=== PATIENT | female | born 1995 ===

== ENCOUNTER 2016-09-22 13:44 | Emergency (ER) | payer SELFPAY ==
--- NOTE | 2016-09-22 15:51 | OBHP ---
Datetime: 09/22/2016 15:43 IP Adm Impression: Term, intrauterine ; No Active Labor; Intact Membranes IP Admit Plan: Observation/Evaluation; Discharge home Admit Comment, IP Provider: The patient is a 21-year-old 1 para 0 estimated due date 017 estimated gestational age 38 weeks. The patient presents to labor and delivery complaining of pel claritza pressure and uterine contractions of mild to moderate intensity. Patient denies any vaginal bleed ing or leakage of fluid she reports good movement. Patient states her care has been un remarkable. Past medical history none Past surgical history none No known drug allergies Social history denies alcohol tobacco use Review of systems patient denies headache chest pain shortness of breath palpitations vaginal blee ding constipation dysuria heat or cold intolerance easy bruisability musculoskeletal neurological com plaints Vital signs stable afebrile Physical exam see notes Intrauterine at 38 weeks latent labor records reviewed from [facility] Sonogram vertex presentation Adequate pelvis Estimated weight 7 pounds Patient will be discharged home with the following instructions Patient was given labor precautions and instructed to moderate kick counts Pelvic Type - PN: Adequate Extremities - PN: Normal Abdomen - PN: Normal Back - PN: Normal Breast - PN: Not Done Lungs - PN: Normal Heart - PN: Normal Thyroid - PN: Normal Neurologic - PN: Normal HEENT - PN: Normal General - PN: Normal Weight - Estimated: 6 Presentation-Admit: Vertex FHR - Baseline A Provider: 145 Gestation - Est Wks by US: 38.0 EGA AdmitDate IP: 38.0 Vital Signs Provider: Reviewed IP Chief Complaint: Uterine contractions; Maternal discomfort NICHD Variability Prov Fetus A: Moderate 6-25bpm NICHD Accel Fetus A IP Provider: 15X15 FHR Category Provider Fetus A: Category I NICHD Decel Fetus A IP Provider: None Dilatation, Provider: 0 Effacement, Provider: 0 Station, Provider: -2 Genitourinary Exam: Normal DTRs - PN: Normal
--- NOTE | 2016-09-25 09:24 | OBPN ---
Datetime: 09/25/2016 09:19 IP Progress Plan: Augmentation Contraction Comments Provider: q2min FHR - Baseline A Provider: 130 Presentation-Admit: Vertex IP Progress Note Comment: s: no c/o; comfortable with epidural o: pit @ 3mU i: 38.3wks Labor augmentation Expectant VD p: continue pitocin Vital Signs Provider: Reviewed NICHD Accel Fetus A IP Provider: 15X15 FHR Category Provider Fetus A: Category I NICHD Variability Prov Fetus A: Minimal - Undetectable to <5bpm Dilatation, Provider: 7-8 Effacement, Provider: 85 Station, Provider: -1/0 NICHD Decel Fetus A IP Provider: None Datetime: 09/24/2016 16:45 Gestation - Est Wks by US: 38+2 Datetime: 09/22/2016 15:43 Weight - Estimated: 6
== END 2016-09-22 15:51 | disposition home or self-care (01) ==
LOC: H.EROB2 13:44
DX: O47.1 False labor at or after 37 completed weeks of gestation (principal); Z3A.38 38 weeks gestation of pregnancy

== ENCOUNTER 2016-09-24 16:11 | Inpatient (IN) | payer MEDICAID, SELFPAY ==
[2016-09-24 18:32] VITALS: BMI 24.0
[2016-09-24] MEDS ORDERED: Lactated Ringer's 1,000 ML IV SCH (20:30)
[2016-09-24 21:29] LABS: BASO % 0.3 % (0.0-2.0); EOS % 0.1 % (0.0-4.0); HEMATOCRIT 33.8 % (34.0-47.0); LYMPH # 1.6 K/uL (1.0-4.3); LYMPH % 15.4 % (20.0-40.0); MEAN CELL VOLUME 88.2 fl (81.0-99.0); MEAN CORPUSCULAR HEMOGLOBIN 30.2 pg (27.0-31.0); MEAN CORPUSCULAR HGB CONC 34.3 g/dL (33.0-37.0); MEAN PLATELET VOLUME 8.6 fl (7.2-11.7); MONO # 0.6 K/uL (0.0-0.8); NEUT # 8.1 K/uL (1.8-7.0); NEUT % 78.2 % (50.0-75.0); RED CELL DISTRIBUTION WIDTH 13.1 % (11.5-14.5); WHITE BLOOD COUNT 10.3 K/uL (4.8-10.8)
--- NOTE | 2016-09-24 21:56 | OBADHP ---
Datetime: 09/24/2016 16:45 Admit Comment, IP Provider: 21 year old presents with complaints of contractions since 07:00. D enies vaginal bleeding, leakage of fluid, reports good movement. Notes mild headache, denies nausea/vomiting, abdominal pain. Last sexual intercourse approx. 1 month ago. records reviewed: HIV neg, RPR nonreactive, Gc/Ct: neg/neg, HEpB neg, Zika neg O: as above, VSS A/P: 21 y/o in early labor. -continuous FHT -will observe -will recheck for cervical changes -If no cervical changes noted, likely discharge home Case discussed with Dr. Clark, who agrees with my assessment and plan. Ayaan Hollingsworth PGY1 the patient was seen with the resident and I agree with the note. Will admit external monito r routine labs adequate pelvis vertex presentation estimated weight 7 pounds Pelvic Type - PN: Adequate Extremities - PN: Normal Abdomen - PN: Normal Lungs - PN: Normal Heart - PN: Normal General - PN: Normal FHR - Baseline A Provider: 140s Gestation - Est Wks by US: 38+2 IP Hx Assessment: The History has been Reviewed and is Current Vital Signs Provider: Reviewed IP Chief Complaint: Uterine contractions NICHD Variability Prov Fetus A: Moderate 6-25bpm NICHD Accel Fetus A IP Provider: 15X15 NICHD Decel Fetus A IP Provider: None Dilatation, Provider: 2 Effacement, Provider: thick Station, Provider: high Genitourinary Exam: Normal EGA AdmitDate IP: 38.2 IP Adm Impression: Term, intrauterine IP Admit Plan: Observation/Evaluation Datetime: 09/22/2016 15:43 Back - PN: Normal Breast - PN: Not Done Thyroid - PN: Normal Neurologic - PN: Normal HEENT - PN: Normal Weight - Estimated: 6 Presentation-Admit: Vertex FHR Category Provider Fetus A: Category I DTRs - PN: Normal
[2016-09-24] MEDS: Lactated Ringer's 1,000 ML IV SCH (23:35)
[2016-09-25] MEDS ORDERED: Fentanyl/Bupivacaine HCl 250 ML EPI ONE (00:05)
[2016-09-25] MEDS ORDERED: Bupivacaine HCl 0.25% PF (10 ml) Inj ONE (00:06)
[2016-09-25] MEDS: Lactated Ringer's 1,000 ML IV SCH ×3 (00:35→15:56)
[2016-09-25] MEDS ORDERED: Oxytocin 30 units/LR 500ML 500 ML IV ONE (04:13)
[2016-09-25] MEDS ORDERED: Lidocaine 1% Inj (20ml) ONE ×2 (07:45→13:08)
[2016-09-25] MEDS: Lactated Ringer's 500 ML IV SCH ×2 (12:20→15:28)
[2016-09-25] MEDS ORDERED: Oxycodone/Acetaminophen 5/325 mg Tab PO PRN ×4 (14:51→15:59)
[2016-09-25] MEDS ORDERED: Benzocaine/Menthol SPRAY TOP PRN (14:51)
[2016-09-25] MEDS ORDERED: Lactated Ringer's 1,000 ML IV SCH (15:59)
[2016-09-25 18:15] LABS: BASO % 0.2 % (0.0-2.0); HEMATOCRIT 32.1 % (34.0-47.0); LYMPH # 1.3 K/uL (1.0-4.3); LYMPH % 8.1 % (20.0-40.0); MEAN CELL VOLUME 90.1 fl (81.0-99.0); MEAN CORPUSCULAR HEMOGLOBIN 29.1 pg (27.0-31.0); MEAN CORPUSCULAR HGB CONC 32.3 g/dL (33.0-37.0); MEAN PLATELET VOLUME 8.8 fl (7.2-11.7); MONO # 1.4 K/uL (0.0-0.8); MONO % 8.3 % (0.0-10.0); NEUT # 13.8 K/uL (1.8-7.0); NEUT % 83.4 % (50.0-75.0); PLATELET COUNT 206 K/uL (130-400); RED CELL DISTRIBUTION WIDTH 13.1 % (11.5-14.5); WHITE BLOOD COUNT 16.6 K/uL (4.8-10.8)
[2016-09-25 19:41] LABS: NEUTROPHIL 84 % (42-75); TOTAL CELLS COUNTED 100
[2016-09-25] MEDS: Benzocaine/Menthol SPRAY TOP PRN (22:22)
--- NOTE | 2016-09-26 02:44 | OBDS ---
DELIVERY PERSONNEL Delivery Doctor: Nata Field MD Flight Crew Ordnanceman: Shawanda Hines RN MATERNAL INFORMATION Delivery Anesthesia: Epidural Medications in Delivery: pitocin, tylenol Estimated Blood Loss (ml): 250 Placenta Cultured: No Maternal Complications: None RN Comments: pt delivered viable female. baby was dried and placed on mother's chest for skin to ski n. apgars were 9,9. then taken to warmer for initial assessment. pt repaired for 2nd degree la c. then placed on mother's chest for bonding and latching. baby and pt remained stable. Provider Comments: delivery note intrapartum dx: labor; 38.3wk pp dx: sme proced: ; plac delivered spontaneously and intact; repair of perineal laceration ob: orossetos anesth: epid findings viable female; 2990g; 9_9 ebl 250cc no complic neon remained in br with pt LABOR SUMMARY EDC: 10/06/2016 00:00 No. Babies in Womb: 1 Attempted: No Labor Anesthesia: Epidural LABOR INFORMATION Reason for Induction: Not Applicable Onset of Labor: 09/24/2016 07:00 Complete Dilatation: 09/25/2016 13:00 Oxytocin: Augmentation Group B Beta Strep: Negative (Annotations: 09/13/16) Steroids Given: None Reason Steroids Not Administered: Not Applicable MEMBRANES Membranes Rupture Method: Artificial Rupture of Membranes: 09/25/2016 06:30 Length of Rupture (hrs): 7.45 Amniotic Fluid Color: Clear Amniotic Fluid Amount: Moderate Amniotic Fluid Odor: Normal STAGES OF LABOR Stage 1 hrs: 30 Stage 1 min: 0 Stage 2 hrs: 0 Stage 2 min: 57 Stage 3 hrs: 0 Stage 3 min: 6 Total Time in Labor hrs: 31 Total Time in Labor min: 3 VAGINAL DELIVERY Episiotomy: None Laceration Extension: Second Degree Laceration Type: Perineal Laceration Repair: Yes Laceration Repair Note: repair with 3-0 vicryl Initial Vag Sponge Count: 5 Final Vag Sponge Count: 5 Initial Vag Sharps Count: 2 Final Vag Sharps Count: 2 Sponge Count Correct: Yes Sharps Count Correct: Yes BABY A INFORMATION Infant Delivery Date/Time: 09/25/2016 13:57 Method of Delivery: Vaginal Born in Route : No : N/A Forceps: N/A Vacuum Extraction: N/A Shoulder Dystocia : No ASSISTED DELIVERY BABY A Station Vacuum/Forcep Apply: SHOULDER DYSTOCIA BABY A Delivery Date/Time: 09/25/2016 13:57 PRESENTATION/POSITION BABY A Presentation: Cephalic Cephalic Presentation: Vertex PLACENTA INFORMATION BABY A Placenta Delivery Time : 09/25/2016 14:03 Placenta Method of Delivery: Spontaneous Placenta Status: Delivered SCORES BABY A Heart Rate 1 min: >100 bpm Resp Effort 1 min: Good Cry Reflex Irritability 1 min: Cough or Sneeze or Pulls Away Muscle Tone 1 min: Active Motion Color 1 min: Body [place], Extremities Blue Resuscitation Effort 1 min: N/A SCORE 1 MIN: 9 Heart Rate 5 min: >100 bpm Resp Effort 5 min: Good Cry Reflex Irritability 5 min: Cough or Sneeze or Pulls Away Muscle Tone 5 min: Active Motion Color 5 min: Body [place], Extremities Blue Resuscitation Effort 5 min: N/A SCORE 5 MIN: 9 INFANT INFORMATION BABY A Gestational Age at Delivery: 38.3 Gestational Status: Term Outcome : Liveborn Condition : Stable Sex: Female WEIGHT/LENGTH BABY A Infant Birthweight (gms): 2990 Infant Weight (lb): 6 Weight (oz): 9 CORD INFORMATION BABY A No. Cord Vessels: 3 Nuchal Cord : N/A Cord Blood Taken: Yes Suction: Mouth
[2016-09-26 07:18] LABS: BASO % 0.3 % (0.0-2.0); EOS # 0.1 K/uL (0.0-0.7); EOS % 0.6 % (0.0-4.0); HEMATOCRIT 25.8 % (34.0-47.0); LYMPH # 2.9 K/uL (1.0-4.3); LYMPH % 20.5 % (20.0-40.0); MEAN CELL VOLUME 89.6 fl (81.0-99.0); MEAN CORPUSCULAR HEMOGLOBIN 29.5 pg (27.0-31.0); MEAN PLATELET VOLUME 8.8 fl (7.2-11.7); MONO # 0.9 K/uL (0.0-0.8); MONO % 6.4 % (0.0-10.0); NEUT # 10.3 K/uL (1.8-7.0); NEUT % 72.2 % (50.0-75.0); RED CELL DISTRIBUTION WIDTH 13.2 % (11.5-14.5); WHITE BLOOD COUNT 14.2 K/uL (4.8-10.8)
--- NOTE | 2016-09-26 22:59 | OBPPN ---
Datetime: 09/26/2016 06:32 PP Pain Prov: Within normal limits PP Nausea Prov: Denies PP Flatus Prov: Yes PP BM Prov: No PP Breasts Prov: Normal PP Heart Prov: Normal PP Lungs Prov: Normal PP Abdomen/Uterus Prov: Normal PP Lochia Prov: Normal PP Vulva/Perineum Prov: Normal PP CVA Tenderness Prov: Normal PP Extremities Prov: Normal PP C/S Incision Prov: Not Applicable PP Progress Prov: Normal PP Comments Phys Exam Prov: lungs CTA b/l, RRR, S1S2, uterus firm umb level, +BM, no calf tenderness , alert, oriented PP Impression Prov: Normal progression PP Plan Prov: Continue present management PP Progress Note Prov: PPD1 21 y/o F s/p at 38.3w and 2nd degree lac doing well on PPD1. Lochia more than menses, de nies dizziness, nausea, CP, SOB, palpitations or vomiting. Voiding with no difficulty. +Flatus, no BM . Tolerating PO reg diet. Pain controlled with pain meds. O: See above [facility] received: Hgb 10.4 A: 21 y/o S/P doing well on PPD1 P: -Cont current plan -Motrin PRn for pain -reg diet -encourage ambulation -Anticipated DC 09/26/16 [facility] PGY1 OB Hospitalist on-call...I saw and examined this patinet on rounds this moring. Agree with above note. DAIN IP PP Procedures: None Vital Signs Provider PP: Reviewed; Within Normal Limits
[2016-09-27] MEDS: Benzocaine/Menthol SPRAY TOP PRN (08:30)
--- NOTE | 2016-09-27 11:56 | OBDCSUM ---
Datetime: 09/27/2016 06:31 Discharged to, Provider: Home Follow up at, Provider: [facility] Disch Instr Activity: Normal activity Disch Instr Diet: Regular Discharge Instructions, Provider: Routine instructions given Discharge Diagnosis, Provider: Term Delivered Discharge Time: 09/27/2016 11:00 Follow up in weeks, Provider: 6 weeks Disch Referrals: None Contraception discussed, Prov: Yes Disch Activity Restrictions: No lifting; No sexual activity; Nothing in vagina - [place], tampon s, douche Discharge Comment, Provider: PPD2 Patient seen at bedside in not acute distress. Lochia like menses. Denies dizziness, nausea, CP, S OB, palpitations or vomiting. Voiding with no difficulty. +Flatus, + BM. Tolerating PO reg diet. Pain controlled with pain meds. Breast and bottle feeding. No calf pain. O: See above A: 21 y/o S/P doing well on PPD2 P: -Discharge home -Motrin PRN for pain -Ferrous sulfate 325mg daily -Colace BID -F/U with PMD for mother in 6 weeks and for baby in 3 days [facility] PGY1 ROS: General - no fatigue HEENT: No [place]; no visual disturbance CV: no CP; no palpitations RESP: No Cough; no SOB GI: No N/V/D : No F/U/D MS: no joint pain Contraception after Delivery: Undecided
--- NOTE | 2016-09-27 11:56 | OBPPN ---
Datetime: 09/27/2016 06:26 PP Pain Prov: Within normal limits PP Nausea Prov: Denies PP Flatus Prov: Yes PP BM Prov: Yes PP Breasts Prov: Normal PP Heart Prov: Normal PP Lungs Prov: Normal PP Abdomen/Uterus Prov: Normal PP Lochia Prov: Normal PP Vulva/Perineum Prov: Normal PP CVA Tenderness Prov: Normal PP Extremities Prov: Normal PP C/S Incision Prov: Not Applicable PP Progress Prov: Normal PP Impression Prov: Normal progression PP Plan Prov: Discharge PP Progress Note Prov: PPD2 Patient seen at bedside in not acute distress. Lochia like menses. Denies dizziness, nausea, CP, S OB, palpitations or vomiting. Voiding with no difficulty. +Flatus, + BM. Tolerating PO reg diet. Pain controlled with pain meds. Breast and bottle feeding. No calf pain. O: See above A: 21 y/o S/P doing well on PPD2 P: -Cont current plan -Motrin PRn for pain -reg diet -encourage ambulation -Anticipated DC Today [facility] PGY1 OBH ADDENDUM: pt seen _ examined by me. agree with above assessment and plan with following additions p: benefit to and mother of reviewed with pt. intitial breast engorgement d /w pt perineal care including sitz bath d/w pt. continue pnv pp
== END 2016-09-27 11:10 | disposition home or self-care (01) | DRG 775 ==
LOC: H.EROB2 16:11 → H.L&D 19:05 → H.OB/GYN 09-25 16:47
PROVIDERS: ADMIT Obstetrics & Gynecology Gynecology; ATTEND Obstetrics & Gynecology Gynecology
PROC: 10E0XZZ Delivery of Products of Conception, External Approach (ICD-10-PCS; principal; 2016-09-25)
PROC: 0KQM0ZZ Repair Perineum Muscle, Open Approach (ICD-10-PCS; 2016-09-25)
PROC: 10907ZC Drainage of Amniotic Fluid, Therapeutic from Products of Conception, Via Natural or Artificial Opening (ICD-10-PCS; 2016-09-25)
PROC: 4A1HXCZ Monitoring of Products of Conception, Cardiac Rate, External Approach (ICD-10-PCS; 2016-09-25)
DX: O70.1 Second degree perineal laceration during delivery (principal); Z37.0 Single live birth; Z3A.38 38 weeks gestation of pregnancy